=== PATIENT | male | born 1965 | race Caucasian/White ===

== ENCOUNTER 2024-10-16 14:55 | Observation (INO) | payer OTHER, SELFPAY ==
[2024-10-16] VITALS (13 sets, daily range): BP systolic 110–151; BP diastolic 57–88; PULSE 75–94; RESP 15–18; TEMP 36.3–36.9; O2SAT 95–98
--- NOTE | 2024-10-16 | XR_ITS ---
WS: [id number] Left leg including the tibia and fibula, C ARM fluoroscopy views, 10/16/2024 Clinical Data: JERSON IMAGES Comparison: Left leg, 10/16/2024 Findings: Dr. Espino reduced the tibial fracture. XR/XR tibia fibula LT 2V 96799 Impression: Dr. Espino reduces the left tibial fracture.
--- NOTE | 2024-10-16 16:15 | XRR_ITS ---
PROCEDURE INFORMATION: Exam: XR Left Tibia and Fibula Exam date and time: 10/16/2024 4:27 PM Age: 58 years old Clinical indication: Injury or trauma; Other: Not specified; Blunt trauma; Lower leg; Left TECHNIQUE: Imaging protocol: Radiologic exam of the left tibia and fibula. Views: 2 views. COMPARISON: No relevant prior studies available. FINDINGS: Bones/joints: Nondisplaced transverse fracture mid left tibial diaphysis. Otherwise, unremarkable. Soft tissues: Distal soft tissue calcifications may be phleboliths. This can be seen with venous insufficiency. Otherwise, unremarkable soft tissues. XR/XR tibia fibula LT 2V [id number] IMPRESSION: 1. Nondisplaced transverse fracture mid left tibial diaphysis. 2. Distal soft tissue calcifications may be phleboliths. This can be seen with venous insufficiency.
--- NOTE | 2024-10-16 16:34 | ED_ITS ---
HPI - Extremity Injury (Lower) 2 General: Chief Complaint: Extremity Injury, Lower Stated Complaint: Lower LT Injury Time Seen by Provider: 10/16/24 15:01 Source: patient Mode of arrival: wheelchair Limitations: no limitations History of Present Illness: Patient is a 58-year-old male presents to ED today for evaluation of a left lower extremity traumatic injury that he sustained after a horse kicked him to his mid left tibial region. Last tetanus is unknown. He does have a deep abrasion to his mid pan. States he cannot bear weight secondary to pain. PMH includes hyperlipidemia, BPH, thyroid disease MD complaint: leg injury Onset (ago): hour(s) Type of Injury: blunt Place: street/outdoors Severity: moderate Relieving factors: immobilization Exacerbating factors: weight bearing and palpation Context: direct blow (kicked by horse) Associated symptoms: Reports inability to bear weight Other symptoms: none Related Data Allergies Allergy/AdvReac Type Severity Reaction Status Date / Time tamsulosin Allergy Unknown Verified 10/16/24 15:22 Review of Systems 2 Musc: Reports: extremity pain; Denies: joint pain or joint swelling Skin/Breast: Reports: other (abrasion L mid tibial region) Neuro: Reports: difficulty walking (secondary to L leg pain); Denies: numbness in extremities or sensory changes Physical Exam 2 Const: COMMON NORMALS: no acute distress, average body habitus, patient oriented x3, no limitations, healthy appearing, alert and well nourished Extremity: COMMON NORMALS: capillary refill normal, no clubbing, cyanosis or edema, no calf tenderness and no pedal edema GENERAL: Yes normal exam except as noted LEFT LOWER EXTREMITY: Yes lower leg Left lower leg: Yes neurovascular exam (normal) EXTREMITY IMAGE (FRONT): 1. quarter sized skin avulsion; no repairable laceration present; edema; no obvious bony deformity Neuro: COMMON NORMALS: patient oriented x3, moves all extremities, no focal motor deficits and no sensory deficits noted SENSORIUM/ORIENTATION: Yes alert GAIT: Yes Unable to assess gait Skin: NARRATIVE SKIN EXAM: abrasion/skin avulsion L mid pan TRAUMA: abrasion Course 2 Consultations: Consultation #1: Dr. Espino-assessed patient here in ED and he will take to OR for washout; asked hosptalist consult on patient to manage any chronic conditions Vital Signs: Vital signs: Vital Signs Temperature 98.4 F 10/16/24 15:18 Pulse Rate 90 10/16/24 15:18 Respiratory Rate 16 10/16/24 15:18 Blood Pressure 138/82 10/16/24 15:18 Pulse Oximetry 98 10/16/24 15:18 Oxygen Delivery Me thod Room Air 10/16/24 15:18 MDM - Extremity Injury (Lower) Medical Decision Making XR showing a nondisplaced midshaft tibial fracture with open wound. Spoke to Dr. Espino who will plan for washout later this evening. Plan to admit overnight for IV antibiotics and discharge tomorrow. Spoke to hospitalist Dr. Pope who will manage chronic medical conditions while admitted. Medical Records I reviewed the patient's medical records. Lab Data Radiology Impressions Tibia/Fibula X-Ray 10/16/24 16:15 IMPRESSION: 1. Nondisplaced transverse fracture mid left tibial diaphysis. 2. Distal soft tissue calcifications may be phleboliths. This can be seen with venous insufficiency. All radiology interpretation(s) finalized by discharge Discharge Plan Discharge Clinical Impression: Closed fracture shaft of tibia Qualifiers: Encounter type: initial encounter Fracture morphology: transverse Fracture alignment: nondisplaced Laterality: left Qualified Code(s): S82.225A - Nondisplaced transverse fracture of shaft of left tibia, initial encounter for closed fracture Condition: Stable Print Language: Nicaraguan Coding Level of Care Code ED Order Booker for Herminio Krueger
--- NOTE | 2024-10-16 17:10 | P.CONIM_ITS ---
Providers/Reason For Consult 2 Consulting Physician/Specialty*: Samuel Espino DO/orthopedic surgery Reason for Consult*: Left tibial shaft incomplete fracture with open wound Requesting Physician: Tanya Huynh?PA Attending Physician: Samuel Espino DO &Dr. Pope hospitalist History of Present Illness History of Present Illness Robbi Doan is a 58 year old male who presented to the emergency department after standing an injury to the left lower extremity. Currently his family reside in [place] where home is. They are currently down here locally camping as well as doing horse trail riding. He was riding a horse today when he sustained a traumatic injury where the horse in front of him and kicked him in his left pan directly over the midshaft of the tibia and sustained a injury with deep abrasion to his mid pan as well as an incomplete fracture of the midshaft of the tibia this is all nondisplaced. He has been unable to be bear weight. He was subsequently brought by the ambulance to the emergency department for evaluation treatment recommendations given the open wound by the fracture site orthopedics was consulted for treatment recommendations. Patient currently getting a tetanus up-to-date in the emergency department receiving 1 dose of 2 g Ancef in the emergency department. Patient accompanied by today. Patient denies any other injuries or pain elsewhere. Review of Systems 2 General: Reports: 10 or more systems reviewed and unremarkable except in HPI and below Medications/Allergies Allergies Allergy/AdvReac Type Severity Reaction Status Date / Time tamsulosin Allergy Unknown Verified 10/16/24 15:22 Vitals/I&O/Wt Last Vital Signs Temp 98.4 F 10/16/24 15:18 Pulse 90 10/16/24 15:18 Resp 16 10/16/24 15:18 BP 138/82 10/16/24 15:18 Pulse Ox 98 10/16/24 15:18 O2 Del Method Room Air 10/16/24 15:18 Weight last 48 hrs Weight 215 lb Physical Exam 2 Narrative: Orthopedic examination: Examination of the left lower extremity demonstrates patient has early bruising and a open wound over the midshaft of the tibia. Subcutaneous tissue as well as mild area dirt appreciated within the wound. Patient has tenderness palpation over the midshaft of the tibia which painful patient has swelling and bruising over the area also slightly proximal. According to this bruising was here prior to injury today. Patient's calf to soft nontender compartments are soft compressible. He is able to plantarflex and dorsiflex ankle as well as wiggle toes and endorses sensations intact light touch to the left lower extremity distal to the injury his distal pulses are palpable. His left lower extremity is warm well-perfused. He has no tenderness to palpation diffusely about the left knee, he is able to tolerate hip range of motion and a negative logroll examinations appreciated. Data 10/16/24 17:13 10/16/24 17:13 Xray Ortho: Radiologist's impression: Ordering Provider/Ordering MD: Delilah Castañeda MD Date of Service: 10/16/24 Procedure(s): XR tibia fibula LT 2V 45366 Accession Number(s): [id number] Report Number: [id number] PROCEDURE INFORMATION: Exam: XR Left Tibia and Fibula Exam date and time: 10/16/2024 4:27 PM Age: 58 years old Clinical indication: Injury or trauma; Other: Not specified; Blunt trauma; Lower leg; Left TECHNIQUE: Imaging protocol: Radiologic exam of the left tibia and fibula. Views: 2 views. COMPARISON: No relevant prior studies available. FINDINGS: Bones/joints: Nondisplaced transverse fracture mid left tibial diaphysis. Otherwise, unremarkable. Soft tissues: Distal soft tissue calcifications may be phleboliths. This can be seen with venous insufficiency. Otherwise, unremarkable soft tissues. XR/XR tibia fibula LT 2V [id number] IMPRESSION: 1. Nondisplaced transverse fracture mid left tibial diaphysis. 2. Distal soft tissue calcifications may be phleboliths. This can be seen with venous insufficiency. A&P Assessment and plan (1) Fracture of left tibia: (2) Open wound of left lower leg: Plan N.p.o. Patient received tetanus up-to-date in the emergency department Internal medicine on board and will admit patient as primary Orthopedics consulted Patient received IV Ancef X-rays reviewed?incomplete fracture left tibial shaft Nonweightbearing left lower extremity Pain control Plan to take patient to the OR emergently this evening for I&D and splint application MDM: Robbi a pleasant 58-year-old male who sustained an injury by horse kick in his left midshaft tibia. He has a nondisplaced fracture Pflug in detail this out with the patient and the given the location obviously of where the wound is as well as this being more of a farm animal possible contaminant we talked about I think the role of taking patient back to the OR emergently tonight for at appropriate satisfactory I&D again his fracture is nondisplaced and at this point in time if this was a closed injury I feel this can very easily be treated nonoperatively with a splint application plan will be to treat that as such I do not feel as though this was a true open injury from the standpoint of the bone opening up through the skin and then reducing back underneath the skin but given the out external exposure and the contaminant of the soft tissue envelope anteriorly directly over the midshaft of the tibia I feel the most appropriate thing patient is already received IV antibiotics as well as taken back for satisfactory I&D. Plan will be for thorough I&D of the left lower extremity with splint application understanding nonweightbearing will admit the patient for observation with IV antibiotics and then plan will be hopefully to discharge him tomorrow after 24 hours of antibiotics and then he can follow-up with his primary care/orthopedics near their home in [place]. Once again detailed the ins and outs of the procedure, the risk the benefits complications alternatives with surgery. Risk of surge include but not limited to make it better, make it worse, persistent pain, infection, incomplete fracture healing. Understanding risk of surgery patient elects proceed with surgical intervention. All questions have been answered at this time. Once again we will optimize and lower his risk of infection given the open wound at the fracture site by already receiving IV antibiotics as well as will undergo irrigation and debridement. Will admit patient postoperatively with the hospitalist team and Ortho will continue to follow. Patient understands agrees current plan. Questions answered. PDMP PDMP Reviewed: Not Reviewed Coding Level of Care Code Acute Code for Chg Fwd Diagnoses Fracture of left tibia S82.202A Open wound of left lower leg S81.802A Time Spent (min) 50
[2024-10-16 17:22] LABS: Basophils # 0.1 10^3/uL (0.0-0.1); Basophils % 0.5 %; Eosinophils % 0.2 %; Hematocrit 43.8 % (37-53); Lymphocytes % 9.2 %; Mean Corpuscular HGB Conc 33.3 g/dL (30-55); Mean Corpuscular Hemoglobin 30.1 pg (27-33); Mean Corpuscular Volume 90.3 fl (82-101); Mean Platelet Volume 9.6 fL (7.4-10.4); Monocytes # 0.7 10^3/uL (0.2-0.9); Monocytes % 6.1 %; Neutrophils # 9.27 10^3/uL (1.8-7.7); Neutrophils % 83.7 %; Nucleated Red Blood Cells % 0 %; Platelet Count 145 10^3/cmm (157-399); Red Blood Count 4.85 10^6/uL (3.85-5.65); Red Cell Distribution Width 12.3 % (12.1-15.1); White Blood Count 11.06 10^3/uL (3.29-11.43)
--- NOTE | 2024-10-16 17:30 | PC.NURSE ---
This nurse took report from Lashawn OAKLEY at [id number].
[2024-10-16] MEDS: tetanus-dipt-pertussis 0.5 mL SDV IM (17:43)
[2024-10-16] MEDS: ketorolac 30 mg/mL INJ IVP (17:44)
[2024-10-16 17:49] LABS: Alanine Aminotransferase 26 U/L (0-41); Albumin Level 4.2 g/dL (3.5-5.2); Alkaline Phosphatase 66 U/L (40-130); Aspartate Amino Transferase 69 U/L (0-40); Blood Urea Nitrogen 15 mg/dL (6-20); Calcium 9.3 mg/dL (8.5-10.5); Carbon Dioxide 22 mmol/L (22-29); Chloride 105 mmol/L (98-107); Creatinine Clr Calc Pharmacy 97.8174; Globulin 3.4 g/dL (1.3-4.6); Glomerular Filtration Rate 76.5 mL/min (90-130); Glucose 96 mg/dL (65-115); Osmolality Calculated 291 mOsm/kg (285-295); Sodium 140 mmol/L (136-145); Total Bilirubin 0.6 mg/dL (0.15-1.2); Total Protein 7.6 g/dL (6.6-8.7)
--- NOTE | 2024-10-16 17:58 | P.ANESASSM_ITS ---
Pre-Anesthetic Assessment Height/Weight: Height 6 ft 1 in Weight 215 lb Temp Pulse Resp BP Pulse Ox O2 Del Method 98.4 F 90 16 138/82 98 Room Air 10/16/24 15:18 10/16/24 15:18 10/16/24 15:18 10/16/24 15:18 10/16/24 15:18 10/16/24 15:18 Preop Diagnosis: Left tibia fracture, open wound Operation Date: 10/16/24 15:35 Proposed Procedures p Debridement Lower Extremity And Irrigation(Left) - Samuel Edmonson, DO Was Beta Tony taken within 24 hours: N/A Was Clonidine taken within 24 hours: N/A Social No alcohol and No tobacco Exam alert, oriented x 3, clear to auscultation bilaterally and regular rate & rhythm Airway Submandibular: within normal limits Cervical ROM: within normal limits Mallampati: Class II Dentition: full Anesthetic Plan ASA status: 2 Anesthesia: General Other: No prior issues with anesthesia NPO since yesterday Hx of BPH and thyroid disease labs reviewed and acceptable for surgery. Plan for general anesthesia Medications/Allergies Home Medications ?Medication ?Instructions ?Recorded ?Confirmed ?Last Taken ?Type hydrocodone 7.5 mg-acetaminophen 1 tab PO Q6H PRN pain #20 tabs 10/16/24 Unknown Rx 325 mg tablet Allergies Allergy/AdvReac Type Severity Reaction Status Date / Time tamsulosin Allergy Unknown Verified 10/16/24 15:22 Data Anesthesia 10/16/24 17:13 10/16/24 17:13 Short CBC 10/16/24 Range/Units 17:13 WBC 11.06 (3.29-11.43) 10^3/uL Hgb 14.60 (11.27-16.99) g/dL Hct 43.8 (37-53) % MCV 90.3 (82-101) fl Plt Count 145 L (157-399) 10^3/cmm Neut % (Auto) 83.7 % Neut # (Auto) 9.27 H (1.8-7.7) 10^3/uL BMP 10/16/24 17:13 Sodium 140 Potassium 4.0 Chloride 105 Carbon Dioxide 22 BUN 15 Creatinine 1.0 Glucose 96 Calcium 9.3 Liver Function 10/16/24 Range/Units 17:13 Total Bilirubin 0.6 (0.15-1.2) mg/dL AST 69 H (0-40) U/L ALT 26 (0-41) U/L Alkaline Phosphatase 66 (40-130) U/L Albumin 4.2 (3.5-5.2) g/dL Cardiac Studies: 2 No Data to Display
--- NOTE | 2024-10-16 18:17 | PM.HP ---
Providers/Chief Complaint Chief Complaint: Lower LT Injury History of Present Illness Robbi Doan is a 58 year old male with past medical history of hyperlipidemia, hypothyroidism, GERD presented to the hospital today after a horse kicked him. He has an open wound to his left tibia. Imaging was done in the ER which showed nondisplaced transverse fracture mid left tibial diaphysis. Distal soft tissue calcifications may be phleboliths. Orthopedic surgery was consulted. Plan to go to the OR at 630 for washout and exploration. Patient received tetanus shot in ER. Hospitalist consulted for empiric IV antibiotics and to manage home medications. Patient states he is very active. Review of systems negative. Able to go up a flight of stairs without any shortness of breath able to do greater than 4 METS of activity easily without any issues. Medications/Allergies Home Medications ?Medication ?Instructions ?Recorded ?Confirmed ?Last Taken ?Type hydrocodone 7.5 mg-acetaminophen 1 tab PO Q6H PRN pain #20 tabs 10/16/24 Unknown Rx 325 mg tablet Allergies Allergy/AdvReac Type Severity Reaction Status Date / Time tamsulosin Allergy Unknown Verified 10/16/24 15:22 Vitals/I&O/Wt Last Vital Signs Temp 98.4 F 10/16/24 15:18 Pulse 91 10/16/24 18:00 Resp 18 10/16/24 18:00 BP 151/88 10/16/24 18:00 Pulse Ox 97 10/16/24 18:00 O2 Del Method Room Air 10/16/24 18:00 Weight last 48 hrs Weight 97.522 kg Physical Exam Narrative: General: Alert oriented x3, patient seen sitting up in bed appearing comfortable at this time. HEENT: Normocephalic, atraumatic, EOMI, breathing room air. Cardio: Regular rate rhythm, normal S1-S2, no gross murmurs. Respiratory: Good bilateral air entry, no wheezes no rhonchi appreciated GI: Abdomen soft, nontender, nondistended, bowel sounds + Extremities: Pedal pulses intact, no edema bilateral lower extremities, left pan not examined as it was wrapped with a Band-Aid. Orthopedic surgery saw patient few minutes prior to my arrival. Data 10/16/24 17:13 10/16/24 17:13 A&P Assessment and plan (1) Closed fracture shaft of tibia: Qualifiers: Encounter type: initial encounter Fracture alignment: nondisplaced Fracture morphology: transverse Laterality: left Qualified Code(s): S82.225A - Nondisplaced transverse fracture of shaft of left tibia, initial encounter for closed fracture (2) Fracture of left tibia: (3) Open wound of left lower leg: (4) Hyperlipidemia: (5) Hypothyroidism: (6) GERD (gastroesophageal reflux disease): Plan #Left tibia nondisplaced fracture #Hyperlipidemia #Hypothyroidism #GERD ? N.p.o. at this time for surgery ? Continue famotidine 20 daily, Protonix 20 daily ? Okay to have regular diet after surgery ? Will order Unasyn 3 mg every 6 hours until patient is in hospital. ? Patient received tetanus shot in ER. ? Ordered doxycycline 100 mg twice daily x 7 days total, Augmentin 875 twice daily x 7 days total at discharge. ? Patient to follow-up with orthopedic surgery and primary care doctor after he gets back to [place]. Patient is from out of town and is planning to go back home in next 1 to 2 days. ? Postop and surgical instructions as per orthopedic surgeon ? Hydrocodone for pain at discharge. ? Patient does not carry diagnosis of hypertension. Mildly elevated blood pressure in the hospital is most likely secondary to pain at this time. I would refrain from adding a antihypertensive at this time. ? Patient's labs reviewed. AST 69. Patient states he was previously on statin has been taken off of that recently. He is to follow-up with primary care doctor after discharge. DT prophylaxis: Heparin SQ twice daily Full code PDMP PDMP Reviewed: Not Reviewed Attestations Medical Necessity Statement*: Left tibia fracture. Diagnoses Closed fracture shaft of tibia S82.225A Encounter type: initial encounter Fracture alignment: nondisplaced Fracture morphology: transverse Laterality: left Fracture of left tibia S82.202A Open wound of left lower leg S81.802A Hyperlipidemia E78.5 Hypothyroidism E03.9 GERD (gastroesophageal reflux disease) K21.9
--- NOTE | 2024-10-16 18:19 | W.PM.OPSUD ---
Surgery/Procedure H&P Update DATE OF PROCEDURE: October 16, 2024 DATE H&P PERFORMED: 10/16/24 H&P UPDATE INFORMATION: I have reviewed H&P completed within last 30 days, I have examined patient prior to procedure and No changes to prior documentation PREOP DIAGNOSIS: Left tibia fracture, open wound PRIMARY INDICATION FOR PROCEDURE: Open wound left tibial shaft fracture PLANNED PROCEDURE: Operation Date: 10/16/24 15:35 Proposed Procedures p Debridement Lower Extremity And Irrigation(Left) - Samuel Espino DO
[2024-10-16] MEDS: ceFAZolin 2,000 mg SDV 2000 MG IVP (18:25)
[2024-10-16] MEDS: acetaminophen 1,000 MG/100 ML PIGGYBACK 400 MG IV (18:45)
--- NOTE | 2024-10-16 19:48 | W.PM.BPON ---
Date of Procedure: [October 16, 2024] Surgeon: [Dr. Srinivas DO] [employer]oa Mill Operator(s): [Evert Espino PA-C] Procedure(s) performed: [Left lower extremity irrigation and debridement (6 cm x 3 cm x 0.5 cm) Closed treatment of tibial shaft fracture] Findings of the procedure(s): [Contaminated open wound 6 cm x 3 cm 0.5 cm on the left lower extremity and left nondisplaced tibial shaft fracture. Procedure went well and as planned.] Estimated blood loss: [5 mL] Specimen(s) removed: [N/A] Post-operative diagnosis: [Contaminated open wound 6 cm x 3 cm 0.5 cm on the left lower extremity and left nondisplaced tibial shaft fracture.]
--- NOTE | 2024-10-16 19:50 | P.OP_ITS ---
Operative Report Date of procedure: October 16, 2024 Pre-op diagnosis: Open wound, left tibial shaft fracture Post-op diagnosis: Same Post-op findings: See operative report narrative Procedure done: Left lower extremity irrigation and debridement (6 cm x 3 cm x 0.5 cm) Closed treatment left tibial shaft fracture with splint application Implants: None Surgeon: Samuel Espino DO Collision Repair Technician: Evert Espino PA-C: PA was necessary for assistance in this case with leg positioning retraction and protection of neurovascular structures as well as assistance in irrigation and debridement, wound closure and dressing/splint application. Anesthesia: General Estimated blood loss (mL): 5 29 minutes IV fluids: 900 mL Urine output: None Complications: None Findings: See operative report narrative Condition: stable Disposition: floor Brief History: Patient is a pleasant 55-year-old male who sustained an injury to his left lower leg where a horse had kicked him and created an open wound and has a nondisplaced fracture of the midshaft of the tibia. At this point in time we talked about his treatment options given the open nature in this communicating right to the level of the fracture site as well as this being a contaminant and recommended taking patient back to the OR emergently for a left lower extremity irrigation debridement and splint application. We talked about the ins and outs procedure risk benefits complications with surgery and through shared decision making patient like to proceed with surgical invention. All questions have been answered at this time. Consent was reviewed and signed with patient. Procedure: Patient was seen by me in the preoperative holding area. Consent was reviewed and signed with patient as well as was present at bedside. Correct extremity was then subsequently marked patient then subsequently was seen evaluate by anesthesia was cleared for surgery taken back to the operative suite. He transported on the OR table all bony promises well-padded patient was appropriate secured to the bed. Patient then subsequently underwent anesthesia per the anesthesia department once appropriately anesthetized the left lower extremity was then prepped and draped in standard orthopedic fashion. Final timeout performed. Patient had had a nonsterile tourniquet applied prior. Patient had already received IV antibiotics. Esmarch tourniquet was used exsanguinate the left lower extremity tourniquet was insufflated to 250 mmHg. Patient had a wound over the midshaft of the tibia with opened up and subcutaneous tissue directly down to bone. Patient had dirt and gross contaminant in this area. At this point in time this had a area of nonvitalized tissue and this was ellipsed in a oblique region as well as extended proximally and distally for a Z flap closure. At this point in time I utilized sharp scalpel excision to excise all nonviable tissue and skin. At this point time I then utilized Littler dissection scissors to spread and came down directly through subcutaneous tissue onto bone. Just inferiorly to that wound was the nondisplaced fracture there was intact periosteum over this area. At this point in time thoroughly irrigated with 3 L of normal saline as well as debrided out any dirt and debris and nonviable tissue of the skin and subcutaneous tissue fascia and periosteum. And pickups and scissors as well as sharp scalpel incision is excised any dirt and debris/contaminant. Also utilized curette on the bone satisfactory debridement. This was debrided total area of 6 cm x 3 cm x 0.5 cm with) once this was completed I then reinspected the wound bed and once I satisfied with my complete debridement I then at this point in time brought in mini C arm and took a picture with multiple orthogonal images of the fracture patient had nondisplaced tibial shaft fracture I did take this through gentle range of motion and there was no evidence of displacement and fracture was stable and maintained its alignment. At this point in time I proceeded with soaking the wound and and diluted Betadine solution this was then allowed to sit for 5 minutes and then once completed I then thoroughly irrigated this with 6 L of normal saline for gravity cystoscopy tubing. This was thoroughly irrigated I then deflated tourniquet hemostasis was satisfactory. Once again utilized my assistant press operator offset for protection of all neurovascular structures and retraction. This point in time final irrigation performed and then subsequently closed this in interrupted nylon suture fashion with satisfactory closure. This was then dres sed with Xeroform 4 x 4's ABD Curlex soft roll and a long-leg splint was applied with a stirrup for varus valgus stability. Patient was then dressed with an Nathan wrap and then awakened from anesthesia and taken back to PACU stable condition. Disposition: Patient taken to PACU same condition recovering well return return be admitted to the continue with IV antibiotics at this time for empiric coverage. Patient will be nonweightbearing and maintain splint. Talked with family and will have them set up follow-up with a local orthopedic when they return home. We will get him onto this with aspirin starting tomorrow. As well as we will send him home on p.o. antibiotics For empiric coverage. Patient and understand agree with current plan. All questions answered. Plan to discharge tomorrow after 24 hours IV antibiotics
--- NOTE | 2024-10-16 19:52 | PM.PACU ---
PACU note Narrative: Patient is a 58-year-old male that just underwent a left lower extremity knee and a closed tibial shaft fracture treatment. Pt transferred to PACU in stable condition. Dressing and long leg splint is dry and intact. pt is awake and alert. pt can wiggle toes Distal pulses are palpable (pedal pulse 2+) toes are warm and well-perfused. Cap refill is normal and under 2 seconds. Sensation to foot is intact. Pain is controlled. Exam: awake Disposition: admitted
[2024-10-16] MEDS: ampicillin-sulbactam 3 GM in sodium chloride 0.9% (plus) 50 ML IV (20:54)
--- NOTE | 2024-10-16 20:54 | ANE.PACU2 ---
Inpatient post-anesthesia follow up: Airway intact: Yes Vital signs: Temperature 98.2 F Pulse Rate 80 Respiratory Rate 15 Blood Pressure 145/62 Pulse Oximetry 96 Oxygen Delivery Me thod Room Air Oxygen Flow Rate Fraction of Inspir ed Oxygen Hydration adequate: Yes Nausea and vomiting: No Pain level: 1 Mental status: Baseline
[2024-10-16] MEDS: heparin 5,000 unit/mL INJ 1 mL 5000 UNIT SUBCUT (20:55)
[2024-10-16] MEDS: chlorhexidine gluconate 0.12% Btl 473 mL 30 ML MUCOUS MEM (20:56)
[2024-10-16 22:23] LABS: Procalcitonin 0.08 ng/mL (0-0.5)
[2024-10-17] MEDS: ampicillin-sulbactam 3 GM in sodium chloride 0.9% (plus) 50 ML IV ×2 (02:26→08:48)
[2024-10-17 04:00] VITALS: BP 112/75; PULSE 77; RESP 16; TEMP 36.7; O2SAT 95
[2024-10-17] MEDS: levothyroxine 50 mcg Tablet PO (05:46)
--- NOTE | 2024-10-17 06:17 | PC.NURSE ---
This nurse offered pain meds through the night along with letting the pt know they were available upon request as well. Pt stated he did not require any pain meds up to this point since being on the floor.
[2024-10-17 07:08] LABS: Basophils % 0.2 %; Hematocrit 40.9 % (37-53); Lymphocytes # 0.7 10^3/uL (0.8-4.8); Lymphocytes % 10.2 %; Mean Corpuscular HGB Conc 32.8 g/dL (30-55); Mean Corpuscular Hemoglobin 30.2 pg (27-33); Mean Corpuscular Volume 92.1 fl (82-101); Monocytes # 0.4 10^3/uL (0.2-0.9); Monocytes % 6.5 %; Neutrophils # 5.37 10^3/uL (1.8-7.7); Neutrophils % 82.8 %; Nucleated Red Blood Cells % 0 %; Platelet Count 155 10^3/cmm (157-399); Red Blood Count 4.44 10^6/uL (3.85-5.65); Red Cell Distribution Width 12.4 % (12.1-15.1); White Blood Count 6.48 10^3/uL (3.29-11.43)
[2024-10-17 07:20] VITALS: BP 112/65; PULSE 63; RESP 16; TEMP 36.6; O2SAT 96
[2024-10-17 07:22] LABS: Alanine Aminotransferase 20 U/L (0-41); Albumin Level 3.7 g/dL (3.5-5.2); Alkaline Phosphatase 59 U/L (40-130); Anion Gap 12.2 (5-19); Aspartate Amino Transferase 54 U/L (0-40); Blood Urea Nitrogen 13 mg/dL (6-20); Calcium 8.5 mg/dL (8.5-10.5); Carbon Dioxide 22 mmol/L (22-29); Chloride 111 mmol/L (98-107); Creatinine Clr Calc Pharmacy 125.4611; Globulin 3.1 g/dL (1.3-4.6); Glomerular Filtration Rate 98.9 mL/min (90-130); Glucose 114 mg/dL (65-115); Osmolality Calculated 293 mOsm/kg (285-295); Potassium 4.2 mmol/L (3.5-5.1); Sodium 141 mmol/L (136-145); Total Bilirubin 0.5 mg/dL (0.15-1.2); Total Protein 6.8 g/dL (6.6-8.7)
[2024-10-17] MEDS: docusate sodium 100 mg Capsule PO (08:48)
[2024-10-17] MEDS: pantoprazole DR 40 mg Tablet 20 MG PO (08:48)
[2024-10-17] MEDS: heparin 5,000 unit/mL INJ 1 mL 5000 UNIT SUBCUT (08:48)
[2024-10-17] MEDS: iron polysaccharide complex 150 mg Capsule PO (08:48)
[2024-10-17] MEDS: calcium carb-vit d 600mg/400unit 1 Tablet 1 EACH PO (08:48)
[2024-10-17] MEDS: multivitamin therapeutic Tablet 1 TAB PO (08:48)
--- NOTE | 2024-10-17 09:00 | DCPLANNER ---
Patient was admitted and has followed up with oracio.
--- NOTE | 2024-10-17 09:07 | PC.CHAP ---
Pastoral Care Encounter/Spiritual Assessment Type of Contact [] Declined drafter assistant visit [] Patient/Family/Request visit [] Outpatient visit [] Follow-up visit [] Physician referral [] Code/Alert [] Routine visit [] Staff referral [] Actively dying [] Patient sleeping [] Family support [] [x] Out of room [] Palliative care [] [] Receiving care in room [] Pre-surgical visit [] Trauma [] Long length of stay [] ICU visit [] Other: Relational/Emotional Strength [] Patient feels connected with others/family/visitors/staff [] Distress [] Loneliness/isolation [] Abandonment Spirituality of Patient [] Person of Marcela [] Attends Confucianist of their Marcela [] Believes in Prayer [] Reads Bible or Mu-Ism materials [] There are Spiritual issues to be addressed [employer]ant Interventions [] Prayer [] Active listening [] Non-anxious presence [] Spiritual/emotional support [] Crisis/trauma care [] Spiritual counseling [] Bereavement support [] Provided bereavement packet [] Provided Bible/devotional materials [] Provided toy/stuffed animal, coloring book to patient or family member [] Provided Communion [] Anointing/[place] [] Salvation [] Completed spiritual assessment [] Other: Impact on Illness or Injury [] Angry [] Fearful [] Anxious [] Often cries [] Exhaustion [] Unable to work [] Unable to attend mosque [] Unable to walk/stand [] Unable to read [] Unable to drive [] Unable to eat/drink [] Unable to sleep [] Unable to be with family [] Patient intubated [] Other: Summary Time spent with patient
--- NOTE | 2024-10-17 11:04 | P.DS_ITS ---
Discharge Providers Date of Admission: 10/16/24 19:47 Date of Discharge: October 17, 2024 Attending Provider at Admission: Suri Pope MD Attending Provider at Discharge: Suri Pope MD Diagnoses at Discharge Discharge Diagnosis (1) Closed fracture shaft of tibia: Status: Acute Qualifiers: Encounter type: initial encounter Fracture alignment: nondisplaced Fracture morphology: transverse Laterality: left Qualified Code(s): S82.225A - Nondisplaced transverse fracture of shaft of left tibia, initial encounter for closed fracture (2) Fracture of left tibia: Status: Acute (3) Open wound of left lower leg: Status: Acute (4) Hyperlipidemia: Status: Acute (5) Hypothyroidism: Status: Acute (6) GERD (gastroesophageal reflux disease): Status: Acute Reason for Visit Reason for Visit: Lower LT Injury Hospital Course Hospital Course Patient presented to the hospital with left tibia nondisplaced fracture after being kicked by a horse. Orthopedic surgery was consulted. He underwent left lower extremity irrigation debridement with splint application. He was given IV Unasyn during hospital stay and medication to doxycycline and Augmentin orally at time of discharge. [place] and will be following up with orthopedic surgery back home in [place] and seeing his primary care doctor. From what the patient tells me he has already called and schedule an appointment for upcoming Tuesday to see orthopedic surgery and [place]. Hospital course was uneventful. aspirin 325 given for DVT ppx Physical Exam Narrative: General: Alert oriented x3, patient seen sitting up in bed appearing comfortable at this time. HEENT: Normocephalic, atraumatic, EOMI, breathing room air. Cardio: Regular rate rhythm, normal S1-S2, no gross murmurs. Respiratory: Good bilateral air entry, no wheezes no rhonchi appreciated GI: Abdomen soft, nontender, nondistended, bowel sounds + Extremities: Pedal pulses intact, no edema bilateral lower extremities,surgical bandage splint in place Discharge Data Studies Completed and Pending Completed Studies During Hospitalization Category Date Time Status XR tibia fibula LT 2V 99004 Stat Exams 10/16/24 16:15 Completed Pending at discharge Category Date Time Status C-arm Mini 79614 Routine Exams 10/16/24 18:43 Ordered Radiology Impressions Tibia/Fibula X-Ray 10/16/24 16:15 IMPRESSION: 1. Nondisplaced transverse fracture mid left tibial diaphysis. 2. Distal soft tissue calcifications may be phleboliths. This can be seen with venous insufficiency. Laboratory Results WBC 6.48 10^3/uL (3.29-11.43) 10/17/24 06:34 RBC 4.44 10^6/uL (3.85-5.65) 10/17/24 06:34 Hgb 13.40 g/dL (11.27-16.99) 10/17/24 06:34 Hct 40.9 % (37-53) 10/17/24 06:34 MCV 92.1 fl (82-101) 10/17/24 06:34 MCH 30.2 pg (27-33) 10/17/24 06:34 MCHC 32.8 g/dL (30-55) 10/17/24 06:34 RDW 12.4 % (12.1-15.1) 10/17/24 06:34 Plt Count 155 10^3/cmm (157-399) L 10/17/24 06:34 MPV 10.0 fL (7.4-10.4) 10/17/24 06:34 Neut % (Auto) 82.8 % 10/17/24 06:34 Lymph % (Auto) 10.2 % 10/17/24 06:34 Duval % (Auto) 6.5 % 10/17/24 06:34 Eos % (Auto) 0.0 % 10/17/24 06:34 Baso % (Auto) 0.2 % 10/17/24 06:34 Neut # (Auto) 5.37 10^3/uL (1.8-7.7) 10/17/24 06:34 Lymph # (Auto) 0.7 10^3/uL (0.8-4.8) L 10/17/24 06:34 Duval # (Auto) 0.4 10^3/uL (0.2-0.9) 10/17/24 06:34 Eos # (Auto) 0.0 10^3/uL (0.0-0.8) 10/17/24 06:34 Baso # (Auto) 0.0 10^3/uL (0.0-0.1) 10/17/24 06:34 Nucleated RBC % (auto) 0 % 10/17/24 06:34 Nucleated RBCs # 0.0 /100WBC 10/17/24 06:34 Sodium 141 mmol/L (136-145) 10/17/24 06:34 Potassium 4.2 mmol/L (3.5-5.1) 10/17/24 06:34 Chloride 111 mmol/L (98-107) H 10/17/24 06:34 Carbon Dioxide 22 mmol/L (22-29) 10/17/24 06:34 Anion Gap 12.2 (5-19) 10/17/24 06:34 BUN 13 mg/dL (6-20) 10/17/24 06:34 Creatinine 0.8 mg/dL (0.7-1.2) 10/17/24 06:34 GFR Calculation 98.9 mL/min (90-130) 10/17/24 06:34 Glucose 114 mg/dL (65-115) 10/17/24 06:34 Calculated Osmolality 293 mOsm/kg (285-295) 10/17/24 06:34 Calcium 8.5 mg/dL (8.5-10.5) 10/17/24 06:34 Magnesium 2.0 mg/dL (1.7-2.3) 10/17/24 06:34 Total Bilirubin 0.5 mg/dL (0.15-1.2) 10/17/24 06:34 AST 54 U/L (0-40) H 10/17/24 06:34 ALT 20 U/L (0-41) 10/17/24 06:34 Alkaline Phosphatase 59 U/L (40-130) 10/17/24 06:34 Total Protein 6.8 g/dL (6.6-8.7) 10/17/24 06:34 Albumin 3.7 g/dL (3.5-5.2) 10/17/24 06:34 Globulin 3.1 g/dL (1.3-4.6) 10/17/24 06:34 Procalcitonin 0.08 ng/mL (0-0.5) 10/16/24 17:13 Vitals Last Vital Signs Temp 97.8 F 10/17/24 07:20 Pulse 63 10/17/24 07:20 Resp 16 10/17/24 07:20 BP 112/65 10/17/24 07:20 Pulse Ox 96 10/17/24 07:20 O2 Del Method Room Air 10/17/24 07:20 Discharge Plan Discharge Patient Disposition: Home Condition: Stable Prescriptions: New aspirin 325 mg capsule 325 mg PO DAILY 30 Days Qty: 30 0RF hydrocodone-acetaminophen 5-325 mg tablet 1 tab PO Q8H PRN (Reason: pain) Qty: 9 0RF Continued pantoprazole 20 mg tablet,delayed release (DR/EC) 20 mg PO DAILY famotidine 20 mg tablet 20 mg PO BID levothyroxine [Synthroid] 50 mcg tablet 50 mcg PO QAM loratadine [Claritin] 10 mg Tablet 10 mg PO QPM Metamucil [facility] Fiber 3.4 gram/5.8 gram Powder 1.65 g PO DAILY cholecalciferol (vitamin D3) [Vitamin D3] 125 mcg (5,000 unit) Tablet 125 mcg PO DAILY Probiotic 3 billion cell Capsule 3,000 mmu cells PO QAM Rx Instructions: administer with a meal Sinclair-3 Fish Oil 300-1,000 mg Capsule 2 cap PO BID tadalafil 5 mg tablet 5 mg PO BID Discontinued tadalafil 10 mg tablet 10 mg PO DAILY pantoprazole 40 mg tablet,delayed release (DR/EC) 40 mg PO QAM Discharge Orders: Discharge Order (Routine); Ordered 10/17/24 Ordered By: Suri Pope Other Ambulatory Orders: DME: Cane/ Crutches (Order) Location: None Selected Ordered By: Evert Espino Discharge Diet: Regular Discharge Activity: Limit activity as instructed and Use walker/crutches as instructed Patient Instructions: Doxycycline (By mouth), Hydrocodone/Acetaminophen (By mouth), Amoxicillin/Clavulanate Potassium (By mouth) (Augmentin, Augmentin..., Debriding Agent (On the skin), Acute Wound Care (DC), Opioid Safety, Post Anesthesia Care Activity Restrictions/Additional Instructions: Orthopedic discharge instructions: Keep dressing clean dry and intact Leave splint on and in place until follow-up visit Do not get splint wet, if it does contact the office for a office visit to have it changed No baths or soaks Nonweightbearing to operative extremity Utilize crutches/walker/knee scooter as tolerated to continue with ambulation while maintaining restrictions Encourage knee range of motion as tolerated Ice and elevate as needed for pain and swelling Take pain medication as prescribed Take antinausea medication as needed Take aspirin 325 mg twice daily for blood clot prevention Supplement with Citracal/vitamin D for bone health and healing Take [id number] Colace as needed for constipation postoperatively Follow-up with Dr. Espino in the office in 2 weeks Contact the office for any questions or concerns(i.e. fevers, increased drainage or redness around the incision site etc.)? Discharge Attestations Time Spent in Discharge Care*: less than 30 min Quality Metrics Clinical Quality Measures [ No reported AMI, CVA or VTE this stay] Coding Level of Care Code Acute Code for Chg Fwd Diagnoses Closed fracture shaft of tibia S82.225A Encounter type: initial encounter Fracture alignment: nondisplaced Fracture morphology: transverse Laterality: left Fracture of left tibia S82.202A Open wound of left lower leg S81.802A Hyperlipidemia E78.5 Hypothyroidism E03.9 GERD (gastroesophageal reflux disease) K21.9
[2024-10-17] MEDS: HYDROcodone-acetaminophen 5-325 mg Tablet 1 TAB PO (11:05)
--- NOTE | 2024-10-17 11:09 | PC.NURSE ---
Patient is not from this area so he has scheduled his own ortho appointment and pcp appointment for when he gets back home.
--- NOTE | 2024-10-17 12:05 | P.PN_ITS ---
Subjective 2 Subjective: Patient seen and examined today at bedside. Ready for discharge today. Spoke with valve and they already have established an Ortho follow-up by the end of this week. Pain controlled. Vitals/I&O/Wt Last Vital Signs Temp 97.8 F 10/17/24 13:03 Pulse 63 10/17/24 13:03 Resp 16 10/17/24 13:03 BP 112/65 10/17/24 13:03 Pulse Ox 96 10/17/24 13:03 O2 Del Method Room Air 10/17/24 07:20 Physical Exam 2 Narrative: Left lower extremity examination: Examination left lower extremity demonstrates patient's long-leg splint is on in place clean dry and intact, dorsalis pedis pulse palpable 2+. Toes warm well- perfused brisk cap refill less than 2 seconds. Is able to wiggle the toes, wrist examination is limited secondary to patient splint. Sensation is intact light touch of the toes. Tenderness palpation at the midshaft the tibia at fracture site. Compartments are soft compressible. Data 10/17/24 06:34 10/17/24 06:34 A&P Assessment and plan (1) Fracture of left tibia: (2) Open wound of left lower leg: Plan Resume regular diet IV antibiotics Plan on discharge on p.o. antibiotics per primary Internal medicine on board as primary Splint on in place clean dry and intact Stable from Ortho standpoint planning on discharge later today patient and has established Ortho follow-up back home By the end of this week Nonweightbearing left lower extremity Utilize crutches as needed for mobilization DVT prophylaxis Pain control Elevate and ice as needed Patient stable for discharge from orthopedic standpoint. Patient will follow-up with orthopedic back at home. Orthopedic discharge instructions in patient's chart. They understand and agree with current plan. PDMP PDMP Reviewed: Not Reviewed Attestations 2 Medical Necessity Statement*: Ongoing care nondisplaced tibial shaft fracture with open wound, requiring I&D and IV antibiotics planning on discharge today Coding Level of Care Code Acute Code for Chg Fwd Diagnoses Fracture of left tibia S82.202A Open wound of left lower leg S81.802A Time Spent (min) 15
--- NOTE | 2024-10-17 12:59 | PC.NURSE ---
Discharge Note Patient discharged to home via privated vehicle accompanied by . Discharge instructions reviewed with patient and/or inventory representative. Mobile pharmacy medications and/or prescriptions provided. Belongings/home medications returned.
[2024-10-17 13:03] VITALS: BP 112/65; PULSE 63; RESP 16; TEMP 36.6; O2SAT 96
== END 2024-10-17 13:04 | disposition home or self-care (01) ==
LOC: ER 17:21 → OR 17:49 → MEDSURG 10-17 08:22
PROVIDERS: Student in an Organized Health Care Education/Training Program; Admitting Provider Internal Medicine; Emergency Provider Physician Assistant; Visit Provider Internal Medicine
PROC: (CPT 11042; principal; 2024-10-16 15:25)
DX: S82.225A Nondisplaced transverse fracture of shaft of left tibia, initial encounter for closed fracture (principal); W55.12XA Struck by horse, initial encounter; E78.5 Hyperlipidemia, unspecified; E03.9 Hypothyroidism, unspecified; K21.9 Gastro-esophageal reflux disease without esophagitis; Z23 Encounter for immunization
CPT/HCPCS: 11042; 27750; 36415; 73590; 76000; 80053; 83735; 84145; 85025; 90471; 90715; 96372; 96374; 96375; 97116; 97162; 97165; 97530; 99285; G0378; J0131; J0295; J0690; J1644; J1885; J2250; J2704; J3010; J9999